=== PATIENT | male | born 1985 | race Caucasian/White ===

== ENCOUNTER 2021-10-31 09:57 | Day surgery (SDC) | payer BC ==
[~2021-10-31 09:57] MED LIST: Lactated Ringers 1,000 ML IV SCH
[2021-10-31] MEDS ORDERED: HYDROmorphone 1 MG/ML Syringe IVPUSH PRN (10:41)
[2021-10-31] MEDS ORDERED: Albuterol 0.083% 2.5 MG/3 ML Neb Soln NEB PRN (10:41)
[2021-10-31] MEDS ORDERED: Metoclopramide 10 MG/2 ML SDV IVPUSH PRN (10:41)
[2021-10-31] MEDS ORDERED: Naloxone 0.4 MG/ML SDV IVPUSH PRN (10:41)
[2021-10-31] MEDS ORDERED: fentaNYL 100 MCG/2 ML SDV IVPUSH PRN (10:41)
[2021-10-31] MEDS ORDERED: Ondansetron 4 MG/2 ML SDV IVPUSH PRN (10:41)
[2021-10-31] MEDS ORDERED: Famotidine 20 MG/2 ML SDV ONE (10:52)
[2021-10-31] MEDS ORDERED: Midazolam 1 MG/ML 2 ML SDV ONE (11:03)
[2021-10-31] MEDS ORDERED: fentaNYL 100 MCG/2 ML SDV ONE (11:03)
[2021-10-31] MEDS ORDERED: Ondansetron 4 MG/2 ML SDV ONE ×2 (11:03→11:57)
[2021-10-31] MEDS ORDERED: Bupivacaine 0.25%/EPINEPHrine 1:200,000 10 ML SDV ONE (11:04)
[2021-10-31] MEDS ORDERED: Ketorolac 30 MG/ML SDV ONE (11:04)
[2021-10-31] MEDS ORDERED: Dexamethasone 4 MG/ML 5 ML MDV ONE (11:04)
[2021-10-31] MEDS ORDERED: Glycopyrrolate 0.2 MG/ML SDV ONE (11:04)
[2021-10-31] MEDS ORDERED: ceFAZolin 1 GM Vial ONE (11:04)
[2021-10-31] MEDS ORDERED: fentaNYL 250 MCG/5 ML SDV ONE (11:18)
[2021-10-31] MEDS ORDERED: Propofol 200 MG/20 ML SDV ONE (11:18)
[2021-10-31] MEDS ORDERED: propofoL 0 ML ONE (11:29)
== END 2021-10-31 13:10 | disposition home or self-care (01) ==
LOC: MW.SDS 09:57
PROVIDERS: ATTEND Orthopaedic Surgery
DX: S83.241A Other tear of medial meniscus, current injury, right knee, initial encounter (principal); I10 Essential (primary) hypertension; E66.9 Obesity, unspecified; Z68.32 Body mass index [BMI] 32.0-32.9, adult; X58.XXXA Exposure to other specified factors, initial encounter
CPT/HCPCS: 29881; J0690; J2405; J2704; J3010; J3490; J7120; 01400; J0131; J1100; J1885; J2250